=== PATIENT | male | born 1960 | race Caucasian/White ===

== ENCOUNTER 2024-11-25 05:54 | Day surgery (SDC) | payer OTHER ==
[2024-11-23 10:05] VITALS: BMI 25.0
[2024-11-25] MEDS ORDERED: SODIUM CHLORIDE 0.9% 1,000 ML in EMPTY BAG 1 BAG IV SCH (05:57)
[2024-11-25] MEDS ORDERED: ASPIRIN 325 MG TAB PO STA (05:57)
[2024-11-25] MEDS ORDERED: ALPRAZolam 0.5 MG TAB PO PRN (05:57)
[2024-11-25] MEDS ORDERED: ALPRAZolam 0.25 MG TAB PO PRN (05:57)
[2024-11-25] MEDS ORDERED: NITROGLYCERIN SL TABS 0.4 MG TAB SUBLINGUAL PRN (05:57)
[2024-11-25] MEDS: IV FLUID CONTINUATION 1,000 ML IV ONE (06:29)
[2024-11-25 06:43] VITALS: RESP 16; TEMP 97.1
[2024-11-25 06:45] LABS: Glucose,Whole Blood 143 mg/dL (70-110)
[2024-11-25] MEDS: MIDAZOLAM 2 MG/2 ML VIAL IVP ONE ×2 (07:49→08:02)
[2024-11-25] MEDS: LIDOCAINE 1% INJ 10MG/ML (20 ML MDV) SQ ONE (07:49)
[2024-11-25] MEDS: VERAPAMIL SYRINGE (5 MG/10 ML) INTRAARTER ONE (07:50)
[2024-11-25] MEDS: HEPARIN SODIUM 1,000 UN/ML (10ML VL) IVP ONE (07:53)
[2024-11-25] MEDS: MORPHINE SULFATE 4 MG/ML SYRINGE IVP ONE (08:06)
[2024-11-25] MEDS: IOPAMIDOL-370 100ML BTL INJ ONE ×2 (08:08→08:14)
[2024-11-25] MEDS ORDERED: RX INFO: IV CONTRAST WAS GIVEN 1 EACH MISC MISCELLANE PRN (08:17)
--- NOTE | 2024-11-25 08:21 | P.PCN ---
Date of Procedure: 11/25/24 Operative Findings: CARDIAC CATHETERIZATION PERFORMING PHYSICIAN: Navi Parsons MD, RPVI PROCEDURE PERFORMED: 1. Selective right and left coronary angiogram along with IFR of the LAD and diagonal branch 2. Left heart catheterization 3. Ultrasound-guided access of the right radial artery INDICATION: Symptomatic 64-year-old gentleman who underwent a stress test as part of preop cardiac assessment and that came in to be abnormal. COMPLICATION: None APPROACH: Right radial artery LEVEL OF SEDATION: Moderate with a sedation length of 27 minutes PROCEDURE DESCRIPTION: After obtaining an informed consent, the patient was brought to cardiac flower shop laborer/designer. Local anesthesia was performed using lidocaine subcutaneously. The right radial artery was cannulated using Seldinger technique, under ultrasound guidance, the guidewire passed easily, following that we advanced a 5-Serbian sheath dilator assembly, the wire and dilator were removed and sheath was flushed. Following that, 2 mg of verapamil along with 5000 unit heparin were given. Selective right and left coronary angiogram using a 5-Serbian JR4 and JL 3.5 catheters. Following that we did left heart catheterization using 5-Serbian pigtail catheter. After that we decided to do an IFR of the LAD and diagonal branch. After zeroing the Dobler wire and equalized in between the Dobler and guiding catheter which was JL 3.5 guiding catheter the left main was engaged and subsequently the LAD was wired with IFR came to be at 0.76 and diagonal was wired with IFR came to be at 0.92 The procedure was completed there was no complication. SELECTIVE CORONARY ANGIOGRAM: The right coronary artery: Large-caliber vessel and a dominant vessel with posterior takeoff with mild disease only Left main: Is angiographically normal The left circumflex: Large caliber vessel nondominant vessel with critical disease involving the ostial portion The left anterior descending artery: Large caliber vessel heavily calcified with long tubular lesion appears to be in the range of 80% documented to be flow-limiting by Doppler wire HEMODYNAMICS: The EDP was 7 mmHg with no significant gradient across aortic valve CONCLUSION: 1. Heavily calcified left coronary system with severe disease involving the ostial LCx and mid LAD with the LAD lesion is a long tubular lesion 2. Normal left-sided filling pressure POSTPROCEDURE MANAGEMENT: Consult surgery for the evaluation of CABG
[2024-11-25] MEDS ORDERED: SODIUM CHLORIDE 0.9% 1,000 ML IV SCH (08:30)
--- NOTE | 2024-11-25 10:12 | XR ---
EXAMINATION TYPE: XR chest 2V DATE OF EXAM: 11/25/2024 10:09 AM COMPARISON: None. CLINICAL INDICATION: Male, 64 years old with history of preop CABG: Shortness of breath TECHNIQUE: XR chest 2V views of the chest are obtained. FINDINGS: Scattered senescent parenchymal changes noted. Hyperinflation compatible with COPD. No evidence for infiltrate. No evidence for atelectasis. Heart size is stable. Mediastinal structures are stable and grossly unremarkable. No evidence for hilar prominence. Degenerative changes dorsal spine. IMPRESSION: 1. No evidence for acute pulmonary disease. [facility], , 11/25/2024 10:10 AM
--- NOTE | 2024-11-25 10:38 | CT ---
EXAMINATION TYPE: CT chest wo con DATE OF EXAM: 11/25/2024 10:11 AM COMPARISON: Radiographs same day CLINICAL INDICATION: Male, 64 years old with history of preop CABG; H, Pre op CABG TECHNIQUE: Multiple axial images were obtained through the chest. No IV contrast. Sagittal and singh l reformats were created for review. MIP was performed on a separate workstation. CT DLP: 482 mGycm, Automated exposure control for dose reduction was used. FINDINGS: The heart is normal size without pericardial effusion. Prominent LAD coronary artery calcifications. Minimal proximal RCA coronary calcifications. Ectatic aortic root 3.8 cm. Minimal atherosclerotic arch calcifications with conventional arch vessel branching anatomy. A few nonenlarged mediastinal lymph nodes measuring up to 6 mm. No thoracic lymphadenopathy by CT siz e criteria. Biapical pleural parenchymal scarring. Strandy subpleural atelectasis posterior lung bases. No consol idation or pleural effusion. Benign calcified granuloma left midlung. Visualized upper abdomen shows plane at the upper limits of normal in size at 13.2 cm. Bones: Incidental 5.6 x 4.1 x 1.6 cm intramuscular lipoma left paraspinal musculature of the upper to mid ba ck. No suspicious internal complexity is seen. DISH throughout the mid and lower thoracic spine. Some degenerative change sternomanubrial joint and also at the sternoclavicular joints, right greater than left. IMPRESSION: 1. [facility] mid and lower thoracic spine. 2. Incidental 5.6 x 4.1 x 1.6 cm intramuscular lipoma left paraspinal musculature of the upper to mid back. 3. Prominent LAD coronary artery calcifications. Minimal proximal RCA coronary artery calcifications. [facility], , 11/25/2024 10:35 AM
--- NOTE | 2024-11-25 10:41 | P.GSCN ---
History of Present Illness Consult date: 11/25/24 Reason for Consult: Coronary artery disease Requesting physician: Navi Parsons History of present illness: This is a 64-year-old gentleman who follows outpatient with Dr. Alvares for primary care and Dr. Parsons for cardiology. He has a previous medical history of hypertension and hyperlipidemia (patient denies both of these diagnoses stating he was placed on medication prophylactically because he is diabetic), diabetes, previous tobacco dependence, and family history of coronary artery disease. This gentleman needed cardiac clearance for hernia surgery. He reports he has had intermittent episodes of chest pain for the last several months with exertion in cold weather. He denies shortness of breath, dizziness, nausea, vomiting, or any other symptomatology. He underwent stress testing which was noted to be abnormal, and he was recommended to undergo heart catheterization which was completed electively today by Dr. Parsons. Heart catheterization revealed heavily calcified left coronary system with 80% LAD stenosis and severe disease involving the ostial circumflex coronary artery. Due to these findings consultation was placed to Dr. Cedillo from cardiothoracic surgery for revascularization recommendations. Review of Systems Review of systems was completed and was negative except as noted - Cardiovascular Reports as per HPI, Reports chest pain Past Medical History Past Medical History: Coronary Artery Disease (CAD), Diabetes Mellitus, Hearing Disorder / Deafness, Hyperlipidemia, Hypertension, Prostate Disorder Additional Past Medical History / Comment(s): Patient denies hypertension and hyperlipidemia stating he is on medications prophylactically because he is diabetic History of Any Multi-Drug Resistant Organisms: None Reported Additional Past Surgical History / Comment(s): COLONOSCOPY. CYST REMOVED FROM BUTTOCKS Past Anesthesia/Blood Transfusion Reactions: No Reported Reaction Past Psychological History: No Psychological Hx Reported Smoking Status: Former smoker Past Alcohol Use History: None Reported Past Drug Use History: None Reported Additional History: Reportedly quit smoking more than 30 years ago - Past Family History Father Family Medical History: Myocardial Infarction (NH) Additional Family Medical History / Comment(s): Father from myocardial infarction at 74 years old Mother Family Medical History: No Reported History Medications and Allergies Home Medications Medication Instructions Recorded Confirmed Type Aspirin EC [Ecotrin Low Dose] 81 mg PO DAILY 11/23/24 11/25/24 History Atorvastatin [Lipitor] 20 mg PO DAILY 11/23/24 11/23/24 History Tamsulosin HCl [Flomax] 0.4 mg PO DAILY 11/23/24 11/23/24 History lisinopriL [Zestril] 5 mg PO DAILY 11/23/24 11/25/24 History metFORMIN HCL [Glucophage] 500 mg PO BID 11/23/24 11/25/24 History Allergies Allergy/AdvReac Type Severity Reaction Status Date / Time No Known Allergies Allergy Verified 11/25/24 06:44 Surgical - Exam Vital Signs Temp Pulse Resp BP Pulse Ox 97.1 F L 78 16 132/65 100 11/25/24 06:41 11/25/24 06:41 11/25/24 06:41 11/25/24 06:41 11/25/24 06:41 CONSTITUTIONAL: Awake and alert, appears comfortable, cooperative, well- developed, well-nourished, no pain, no acute distress EYES: Pupils equal, round, reactive to light, normal ocular movement ENT: Moist mucous membranes without oral lesions present NECK: No masses, no bruits, trachea midline RESPIRATORY: Lungs sounds clear to auscultation bilaterally. Respirations even, nonlabored. Currently on room air with oxygen saturation 96%. Strong cough. No chest wall deformities. No clubbing or cyanosis present CARDIOVASCULAR: S1, S2 present. Regular rate and rhythm, sinus rhythm on telemetry. Palpable peripheral pulses bilaterally. No edema present. No calf pain or tenderness noted. No significant lower extremity varicosities noted GASTROINTESTINAL: Abdomen soft, nontender, nondistended without masses or organomegaly noted. There is no rebound or guarding present. Active bowel sounds present 4 quadrants. GENITOURINARY: Deferred INTEGUMENTARY: Skin is warm and dry with evidence of good perfusion. NEUROLOGIC: Cranial nerves II through XII intact, normal coordination, no obvious motor or sensory deficits, speech is normal MUSKULOSKELETAL: Able to move all extremities, strength equal bilaterally, normal posture PSYCHIATRIC: Alert and oriented to person place and time, appropriate affect, intact judgment and insight CLINICAL FRAILTY SCORE 4 Results - Labs Abnormal Lab Results - Last 24 Hours (Table) 11/25/24 Range/Units 06:34 POC Glucose (mg/dL) 143 H (70-110) mg/dL - Imaging Additional studies: Heart catheterization films reviewed with Dr. Cedillo Assessment and Plan Assessment: Coronary artery disease Chest pain, secondary to above History of diabetes Hypertension and hyperlipidemia (patient denies both of these diagnoses stating he was placed on medication prophylactically because he is diabetic) Previous tobacco dependence Family history of coronary artery disease Plan: The patient was seen and examined sitting up on a cart in the Extended Stay unit with his present. Chart/diagnostics were reviewed. Case discussed with Dr. Cedillo who will see the patient today. The usual perioperative course of open-heart surgery was discussed with patient his , risks benefits were reviewed, all questions were answered. Preoperative testing initiated, once complete will calculate STS risk score and discussed with the patient. Recommend continuing to maximize medical therapy with aspirin, statin. Recommend beta-haley. After Dr. Cedillo sees the patient he may be discharged to home from our standpoint to follow-up outpatient for surgical planning. Thank you Dr. Parsons for this consult, we look forward to working with you in the care of this patient. I have personally seen and examined the patient, performed the documentation and the assessment and plan as written. Number of minutes spent on the visit: 30. PHYLLIS [place]
--- NOTE | 2024-11-25 11:44 | US ---
EXAMINATION TYPE: US vein mapping BILAT DATE OF EXAM: 11/25/2024 11:29 AM Exam done portable in [facility] COMPARISON: NONE CLINICAL INDICATION: Male, 64 years old with history of preop cardiac surgery; , Preop- Cardiac Surge ry TECHNIQUE: Grayscale and color Doppler imaging of the lower extremity venous system. SIDE PERFORMED: Bilateral FINDINGS: Measurements in mm: Right Greater Saphenous: Groin: 12.7 x 12.0 mm High Thigh: 8.7 x 8.9 mm Mid Thigh: 10.4 x 8.9 mm Above Knee: 8.7 x 7.3 mm Knee: 9.6 x 8.4 mm Below Knee: 7.8 x 6.0 mm Mid Calf: 5.9 x 5.1 mm At Ankle: 4.5 x 3.6 mm Left Greater Saphenous: Groin: 5.6 x 5.6 mm High Thigh: 5.1 x 5.6 mm Mid Thigh: 5.3 x 4.3 mm Above Knee: 4.7 x 4.7 mm Knee: 4.1 x 3.9 mm Below Knee: 4.2 x 3.3 mm Mid Calf: 4.1 x 3.7 mm At Ankle: 2.8 x 2.3 mm IMPRESSION: 1. No evidence for occlusion. 2. GSV measurements listed above. 3. Performing surgeon to determine viability as conduit. [facility], , 11/25/2024 11:42 AM
--- NOTE | 2024-11-25 11:45 | US ---
EXAMINATION TYPE: US carotid duplex BILAT DATE OF EXAM: 11/25/2024 Exam done portable in [facility] COMPARISON: NONE CLINICAL INDICATION: Male, 64 years old with history of preop cardiac surgery; TECHNIQUE: Grayscale, color Doppler and spectral Doppler evaluation of the bilateral carotid systems and vertebral arteries. Indirect Doppler criteria was utilized. FINDINGS: EXAM MEASUREMENTS: RIGHT: Peak Systolic Velocity (PSV) cm/sec ----- Right CCA: 112.1 ----- Right ICA: 97.9 ----- Right ECA: 129.4 ICA/CCA ratio: 0.9 RIGHT: End Diastole cm/sec ----- Right CCA: 9.8 ----- Right ICA: 25.0 ----- Right ECA: 0.0 LEFT: Peak Systolic Velocity (PSV) cm/sec ----- Left CCA: 142.3 ----- Left ICA: 105.7 ----- Left ECA: 136.6 ICA/CCA ratio: 0.7 LEFT: End Diastole cm/sec ----- Left CCA: 23.4 ----- Left ICA: 30.0 ----- Left ECA: 0.0 VERTEBRALS (direction of flow): Right Vertebral: Antegrade Left Vertebral: Antegrade Rhythm: Normal IMPRESSION: No evidence for hemodynamically significant stenosis Criteria for Assigning % of Stenosis / Diameter reduction (Estimation based on the indirect measurements of the internal carotid artery velocities (ICA PSV). 1. Normal (no stenosis)=ICA PSV < 180 cm/s: ratio < 2.0: ICA EDV<40 cm/s. 2. Less than 50% stenosis=ICA PSV < 180 cm/s: ratio < 2.0: ICA EDV<40 cm/s. 3. 50 to 69% stenosis=ICA PSV of 180 to 230 cm/s: ration 2.0 ? 4.0: ICA EDV 40-100 cm/s. PSV 125-180 cm/sec and ICA/CCA PSV Ratio ? 2.0 is also consistent with 50-69% stenosis 4. Greater than 70% stenosis to near occlusion= ICA PSV > 230 cm/s: ratio > 4.0: ICA EDV > 100 cm/s. 5. Near occlusion= ICA PSV velocities may be low or undetectable: variable ratio and ICA EDV. 6. Total occlusion=unable to detect flow. [facility], , 11/25/2024 11:42 AM
--- NOTE | 2024-11-25 11:45 | US ---
EXAMINATION TYPE: Pre-Operative Non-Invasive Evaluation of the hand for Potential Radial Artery Quin camacho, Measurements only DATE OF EXAM: 11/25/2024 11:29 AM Exam done portable in [facility] CLINICAL INDICATION: Male, 64 years old with history of measurements only; , Preop- Cardiac Surgery TECHNIQUE:Grayscale and color Doppler imaging of the radial artery(s) SIDE PERFORMED: Left FINDINGS: Measurements in mm, transverse view: Left Radial: Proximal: 2.6 x 2.7 mm Mid: 3.0 x 2.7 mm Distal: deferred due to IV IMPRESSION: 1. No evidence for vascular occlusion. 2. Measurements as described above. [facility], , 11/25/2024 11:42 AM
[2024-11-25 12:08] VITALS: PULSE 64
[2024-11-25] MEDS: ACETAMINOPHEN TAB 325 MG TAB PO PRN (12:12)
[2024-11-25 12:42] LABS: Basophils # (A) 0.02 10*3/uL (0.00-0.10); Basophils % (A) 0.4 %; Eosinophils # (A) 0.12 10*3/uL (0.04-0.35); Eosinophils % (A) 2.5 %; HCT 36.1 % (39.6-50.0); HGB 11.4 g/dL (13.0-17.0); Lymphocytes # (A) 1.33 10*3/uL (0.90-5.00); Lymphocytes % (A) 27.3 %; MCH 27.5 pg (27.0-32.0); MCHC 31.6 g/dL (32.0-37.0); MCV 87.2 fL (80.0-97.0); Monocytes # (A) 0.28 10*3/uL (0.20-1.00); Monocytes % (A) 5.7 %; Neutrophils # (A) 3.12 10*3/uL (1.80-7.70); Neutrophils % (A) 63.9 %; Platelet Count 240 10*3/uL (140-440); RBC 4.14 10*6/uL (4.40-5.60); RDW 14.1 % (11.5-14.5); WBC 4.88 10*3/uL (4.50-10.00)
[2024-11-25 12:47] LABS: Appearance,Urine Clear (Clear); Bilirubin,Urine Negative (Negative); Blood,Urine Negative (Negative); Color,Urine Colorless; Glucose,Urine (UA) Negative (Negative); Ketones,Urine Negative (Negative); Leukocyte Esterase,Urine Negative (Negative); Nitrite,Urine Negative (Negative); PH, Urine 6.5 (5.0-8.0); Protein,Urine Negative (Negative); Specific Gravity,Urine 1.027 (1.001-1.035); Urobilinogen,Urine <2.0 mg/dL (<2.0)
[2024-11-25 12:52] VITALS: BP 143/83
[2024-11-25 12:52] LABS: ALT 19 U/L (4-49); AST 18 U/L (17-59); African American GFR (CKD) >90 (>60 ml/min/1.73 sqM); Albumin 3.8 g/dL (3.5-5.0); Alkaline Phosphatase 60 U/L (38-126); Anion Gap 7 mmol/L; Blood Urea Nitrogen 15 mg/dL (9-20); Calcium 8.7 mg/dL (8.4-10.2); Carbon Dioxide 27 mmol/L (22-30); Chloride 105 mmol/L (98-107); Glucose 178 mg/dL (74-99); Magnesium 2.4 mg/dL (1.6-2.3); Non-African American GFR(CKD) >90 (>60 ml/min/1.73 sqM); Potassium 4.3 mmol/L (3.5-5.1); Sodium 139 mmol/L (137-145); Total Bilirubin 0.6 mg/dL (0.2-1.3)
[2024-11-25 12:55] LABS: Partial Thromboplastin Time 25.2 sec (22.0-30.0); Prothrombin Time 11.2 sec (10.0-12.5)
[2024-11-25 20:06] LABS: LDL Cholesterol,Calculated 47.1 mg/dL (0.0-131.0)
[2024-11-25 20:25] LABS: Hepatitis A Antibody IgM Nonreactive (Nonreactive); Hepatitis B Core IgM Nonreactive (Nonreactive); Hepatitis B Surface Antigen Nonreactive (Nonreactive); Hepatitis C IgG Antibody Nonreactive (Nonreactive)
== END 2024-11-25 12:54 | disposition home or self-care (01) ==
LOC: CATHCVL 05:54
PROVIDERS: ATTEND Internal Medicine Interventional Cardiology
DX: I25.110 Atherosclerotic heart disease of native coronary artery with unstable angina pectoris (principal); I25.84 Coronary atherosclerosis due to calcified coronary lesion; I10 Essential (primary) hypertension; E11.9 Type 2 diabetes mellitus without complications; E78.5 Hyperlipidemia, unspecified; I35.1 Nonrheumatic aortic (valve) insufficiency; N42.9 Disorder of prostate, unspecified; Z79.82 Long term (current) use of aspirin; Z79.84 Long term (current) use of oral hypoglycemic drugs; Z79.899 Other long term (current) drug therapy; Z87.891 Personal history of nicotine dependence; Z82.49 Family history of ischemic heart disease and other diseases of the circulatory system
CPT/HCPCS: 93458; 93799; 80061; 80053; 80074; 84443; 83735; 85025; 85610; 85730; 81003; 87070; 83036; 71046; 93931; 93970; 93880; 71250; C1894; C1769; J2250; J2270; J2003; J1644; Q9967

== ENCOUNTER → 2024-12-07 | Outpatient (CLI) | payer OTHER ==
--- NOTE | 2024-12-07 10:26 | P.PN ---
Progress Note - Text Progress Note Date: 12/07/24 5 meter walk test completed: #1 3.48 sec #2 3.08 sec #3 3.28 sec Patient tolerated well. STS risk calculated and discussed with patient. CFS=4
[2024-12-07 10:31] LABS: Prothrombin Time 11.3 sec (10.0-12.5)
[2024-12-07 15:51] LABS: ALT 19 U/L (10-49); AST 15 U/L (14-35); Albumin/Globulin Ratio 1.25 Ratio (1.60-3.17); Alkaline Phosphatase 74 U/L (41-126); BUN/Creat Ratio 28.43 Ratio (12.00-20.00); Blood Urea Nitrogen 19.9 mg/dL (9.0-27.0); Calcium 9.2 mg/dL (8.7-10.3); Carbon Dioxide 24.3 mmol/L (21.6-31.8); Chloride 101 mmol/L (96-109); Globulin 3.2 g/dL (1.6-3.3); Glucose 174 mg/dL (70-110); Magnesium 2.2 mg/dL (1.5-2.4); Potassium 4.5 mmol/L (3.5-5.5); Sodium 136 mmol/L (135-145); Total Bilirubin 0.4 mg/dL (0.3-1.2); Total Protein 7.2 g/dL (6.2-8.2)
[2024-12-07 15:59] LABS: HGB 11.4 g/dL (13.0-17.0); MCHC 30.8 g/dL (32.0-37.0); MCV 87.5 FL (80.0-97.0); Mean Platelet Volume 9.7 FL (9.5-12.2); NRBC Per 100 WBC 0 X 10*3/uL (0.00-0.01); Platelet Count 282 X 10*3/uL (140-440); RBC 4.23 X 10*6/uL (4.40-5.60); RDW 14.3 % (11.5-14.5); WBC 7.35 X 10*3/uL (4.50-10.00)
== END | disposition home or self-care (01) ==
LOC: LABPAT 09:33
PROVIDERS: ATTEND Surgery
DX: Z01.810 Encounter for preprocedural cardiovascular examination (principal)
CPT/HCPCS: 80053; 83735; 85027; 85610; 85730; 86850; 86900; 86901; 86920